=== PATIENT | male | born 1985 | race Caucasian/White ===

== ENCOUNTER 2018-01-28 20:46 | Emergency (ER) | payer OTHER, SELFPAY ==
--- NOTE | 2018-01-28 22:16 | ER ---
Nurse's Notes [facility] Name: Haja Louis Age: 32 yrs Sex: Male : 1985 Arrival Date: 01/28/2018 Time: 20:51 Bed 19 Private MD: Diagnosis: Strain of muscle and tendon of back wall of thorax;Strain of muscle, fascia and tendon of lower back Presentation: 01/28 20:59 Presenting complaint: Patient states: Lower and mid back pain for the past 2 days. aj1 Patient states that he was doing heavy work the day before it started hurting, and he woke up the next morning with back pain. Transition of care: patient was not received from another setting of care. Onset of symptoms was January 25, 2018. Risk Assessment: Do you want to hurt yourself or someone else? Patient reports no desire to harm self or others. Initial Sepsis Screen: Does the patient meet any 2 criteria? No. Patient's initial sepsis screen is negative. Does the patient have a suspected source of infection? No. Patient's initial sepsis screen is negative. Care prior to arrival: None. 20:59 Method Of Arrival: Ambulatory aj 20:59 Acuity: JORDON 4 aj1 Triage Assessment: 21:04 General: Appears in no apparent distress. uncomfortable, Behavior is calm, cooperative, aj1 appropriate for age. Pain: Complains of pain in low back area and mid back area Pain currently is 5 out of 10 on a pain scale. Neuro: Level of Consciousness is awake, alert, obeys commands. Cardiovascular: Patient's skin is warm and dry. Respiratory: Airway is patent Respiratory effort is even, unlabored, Respiratory pattern is regular, symmetrical. Musculoskeletal: Range of motion: intact in all extremities. Historical: - Allergies: 21:04 No Known Allergies; aj1 - Home Meds: 21:04 None [Active]; aj1 - PMHx: 21:04 None; aj1 - PSHx: 21:04 None; aj1 - Immunization history:: Flu vaccine is not up to date. - Social history:: Smoking status: Patient uses tobacco products, denies chronic smoking, but will smoke occasionally. - Ebola Screening: : Patient denies travel to an Ebola-affected area in the 21 days before illness onset. Screenin:50 Abuse screen: Denies threats or abuse. Denies injuries from another. Nutritional ak1 screening: No deficits noted. Tuberculosis screening: No symptoms or risk factors identified. Fall Risk None identified. Assessment: 21:50 General: Appears in no apparent distress. Behavior is cooperative, anxious. Pain: ak1 Complains of pain in mid back area and low back area. Neuro: Level of Consciousness is awake, alert, obeys commands, Oriented to person, place, time, situation, Pencil Maker are equal bilaterally Moves all extremities. Gait is steady, Speech is normal, Facial symmetry appears normal. Cardiovascular: No deficits noted. Respiratory: No deficits noted. GI: No signs and/or symptoms were reported involving the gastrointestinal system. : No signs and/or symptoms were reported regarding the genitourinary system. EENT: No signs and/or symptoms were reported regarding the EENT system. Derm: No signs and/or symptoms reported regarding the dermatologic system. Musculoskeletal: Reports pain in mid back area and low back area since yesterday. pt denies injury. pt stated he woke yesterday with "stiff back" and it continued today. pt unable to return to work today. . 22:19 Reassessment: pt refused IM pain medication. pt requested work note. ak1 Vital Signs: 21:04 BP 147 / 80; Pulse 55; Resp 16; Temp 97.5; Pulse Ox 100% on R/A; Weight 99.79 kg (R); aj1 Height 5 ft. 11 in. (180.34 cm) (R); Pain 5/10; 21:04 Body Mass Index 30.68 (99.79 kg, 180.34 cm) aj1 ED Course: 20:51 Patient arrived in ED. ag3 21:04 Triage completed. aj1 21:04 Arm band placed on Patient placed in waiting room, Patient notified of wait time. aj1 21:28 Danna Molina, ERICK is Primary Nurse. ak1 21:45 Smith Melgar NP is PHCP. pm1 21:45 Ruben Miles MD is Attending Physician. pm1 21:52 Patient has correct armband on for positive identification. Bed in low position. Call ak1 light in reach. Side rails up X 1. 22:14 No provider procedures requiring assistance completed. Patient did not have IV access ak1 during this emergency room visit. Administered Medications: 22:13 Drug: Motrin 800 mg Route: PO; ak1 22:19 Follow up: Response: No adverse reaction ak1 Outcome: 22:14 Condition: good ak1 22:14 Discharge instructions given to patient. 22:16 Discharge ordered by MD. pm1 22:19 Discharged to home ambulatory. ak1 22:19 Instructed on discharge instructions, follow up and referral plans. no drinking with medication, no driving heavy equipment, medication usage, Demonstrated understanding of instructions, follow-up care, medications, Prescriptions given X 2. 22:20 Patient left the ED. ak1 Signatures: Tami Staples RN RN aj1 Danna Molina RN RN ak1 Smith Melgar, HOMOEOPATH HOMOEOPATH pm1 Kay Parks
--- NOTE | 2018-01-28 22:16 | EDPHYS ---
Physician Documentation [facility] Name: Haja Louis Age: 32 yrs Sex: Male : 1985 Arrival Date: 01/28/2018 Time: 20:51 Bed 19 Private MD: ED Physician Ruben Miles HPI: 01/28 22:13 This 32 yrs old Male presents to ER via Ambulatory with complaints of Back pm1 Pain. 22:13 The patient presents with pain that is acute. The symptoms are located in the thoracic pm1 area and lumbar area. Onset: The symptoms/episode began/occurred this morning. The pain does not radiate. Associated signs and symptoms: Pertinent negatives: abdominal pain, chest pain, dysuria, fever, numbness, tingling, weakness. The problem was sustained when bending over, when lifting heavy object. Modifying factors: The patient symptoms are alleviated by remaining still, the patient symptoms are aggravated by bending, lifting, movement. Severity of symptoms: in the emergency department the symptoms are actually worse. Patient lifting multiple 50 pound objects yesterday and woke up this AM with pain and muscle cramping to his thoracic and lumbar areas. . Historical: - Allergies: 21:04 No Known Allergies; aj1 - Home Meds: 21:04 None [Active]; aj1 - PMHx: 21:04 None; aj1 - PSHx: 21:04 None; aj1 - Immunization history:: Flu vaccine is not up to date. - Social history:: Smoking status: Patient uses tobacco products, denies chronic smoking, but will smoke occasionally. - Ebola Screening: : Patient denies travel to an Ebola-affected area in the 21 days before illness onset. ROS: 22:13 Constitutional: Negative for fever, chills, and weight loss, Eyes: Negative for injury, pm1 pain, redness, and discharge, ENT: Negative for injury, pain, and discharge, Neck: Negative for injury, pain, and swelling, Cardiovascular: Negative for chest pain, palpitations, and edema, Respiratory: Negative for shortness of breath, cough, wheezing, and pleuritic chest pain, Abdomen/GI: Negative for abdominal pain, nausea, vomiting, diarrhea, and constipation. 22:13 : Negative for injury, bleeding, discharge, and swelling, MS/Extremity: Negative for injury and deformity, Skin: Negative for injury, rash, and discoloration, Neuro: Negative for headache, weakness, numbness, tingling, and seizure. 22:13 Back: Positive for of the thoracic area and lumbar area, pain. Exam: 22:13 Constitutional: This is a well developed, well nourished patient who is awake, alert, pm1 and in no acute distress. Head/Face: Normocephalic, atraumatic. Eyes: Pupils equal round and reactive to light, extra-ocular motions intact. Lids and lashes normal. Conjunctiva and sclera are non-icteric and not injected. Cornea within normal limits. Periorbital areas with no swelling, redness, or edema. ENT: Nares patent. No nasal discharge, no septal abnormalities noted. Tympanic membranes are normal and external auditory canals are clear. Oropharynx with no redness, swelling, or masses, exudates, or evidence of obstruction, uvula midline. Mucous membranes moist. Neck: Trachea midline, no thyromegaly or masses palpated, and no cervical lymphadenopathy. Supple, full range of motion without nuchal rigidity, or vertebral point tenderness. No Meningismus. Chest/axilla: Normal chest wall appearance and motion. Nontender with no deformity. No lesions are appreciated. Cardiovascular: Regular rate and rhythm with a normal S1 and S2. No gallops, murmurs, or rubs. Normal PMI, no JVD. No pulse deficits. Respiratory: Lungs have equal breath sounds bilaterally, clear to auscultation and percussion. No rales, rhonchi or wheezes noted. No increased work of breathing, no retractions or nasal flaring. 22:13 Skin: Warm, dry with normal turgor. Normal color with no rashes, no lesions, and no evidence of cellulitis. MS/ Extremity: Pulses equal, no cyanosis. Neurovascular intact. Full, normal range of motion. 22:13 Back: scoliosis that is mild, muscle spasm, is appreciated in the left subscapular area, right subscapular area, left low back and right low back. 22:13 Neuro: Orientation: is normal, Mentation: is normal, Motor: moves all fours, strength is normal, Gait: is steady, at a normal pace, without difficulty. Vital Signs: 21:04 BP 147 / 80; Pulse 55; Resp 16; Temp 97.5; Pulse Ox 100% on R/A; Weight 99.79 kg (R); aj1 Height 5 ft. 11 in. (180.34 cm) (R); Pain 5/10; 21:04 Body Mass Index 30.68 (99.79 kg, 180.34 cm) aj1 MDM: 22:00 Patient medically screened. pm1 22:14 Data reviewed: vital signs. Data interpreted: Pulse oximetry: on room air is 100 %. pm1 Interpretation: normal. Counseling: I had a detailed discussion with the patient and/or guardian regarding: the historical points, exam findings, and any diagnostic results supporting the discharge/admit diagnosis, the need for outpatient follow up, to return to the emergency department if symptoms worsen or persist or if there are any questions or concerns that arise at home. ED course: patient offered Toradol but requested PO medication. Patient driving so patient given ibuprofen in ER. Administered Medications: 22:13 Drug: Motrin 800 mg Route: PO; ak1 22:19 Follow up: Response: No adverse reaction ak Disposition: 23:12 Co-signature as Attending Physician, Ruben Miles MD. dwaine Disposition: 01/28/18 22:16 Discharged to Home. Impression: Strain of muscle and tendon of back wall of thorax, Strain of muscle, fascia and tendon of lower back. - Condition is Stable. - Discharge Instructions: Back Pain, Adult, Muscle Strain, Back Injury Prevention, [id number]. - Prescriptions for Naprosyn 500 mg Oral Tablet - take 1 tablet by ORAL route 2 times per day take with food; 30 tablet. Cyclobenzaprine 10 mg Oral Tablet - take 1 tablet by ORAL route every 8 hours As needed; 30 tablet. - Work release form, Medication Reconciliation Form, Thank You Letter, Antibiotic Education, Prescription Opioid Use form. - Follow up: Emergency Department; When: As needed; Reason: Worsening of condition. Follow up: Private Physician; When: 2 - 3 days; Reason: Recheck today's complaints, Continuance of care, Re-evaluation by your physician. - Problem is new. - Symptoms have improved. Signatures: Tami Staples RN RN aj1 Ruben Miles MD MD pkl Danna Molina RN RN ak1 Smith Melgar, FAMILY WELFARE SOCIAL WORK PROFESSOR FAMILY WELFARE SOCIAL WORK PROFESSOR pm1 Corrections: (The following items were deleted from the chart) 22:20 22:16 01/28/2018 22:16 Discharged to Home. Impression: Strain of muscle and tendon of ak1 back wall of thorax; Strain of muscle, fascia and tendon of lower back. Condition is Stable. Forms are Work release form, Medication Reconciliation Form, Thank You Letter, Antibiotic Education, Prescription Opioid Use. Follow up: Emergency Department; When: As needed; Reason: Worsening of condition. Follow up: Private Physician; When: 2 - 3 days; Reason: Recheck today's complaints, Continuance of care, Re-evaluation by your physician. Problem is new. Symptoms have improved. pm1
[2018-01-28] MEDS ORDERED: IBUPROFEN 400 MG TAB ONE (22:18)
== END 2018-01-28 22:20 | disposition home or self-care (01) ==
LOC: ER 20:46
DX: S29.012A Strain of muscle and tendon of back wall of thorax, initial encounter (principal); S39.012A Strain of muscle, fascia and tendon of lower back, initial encounter; X50.0XXA Overexertion from strenuous movement or load, initial encounter; Y93.89 Activity, other specified; Y92.9 Unspecified place or not applicable; Z72.0 Tobacco use
CPT/HCPCS: 99283

== ENCOUNTER 2018-12-16 23:44 | Emergency (ER) | payer SELFPAY ==
--- NOTE | 2018-12-17 00:57 | ER ---
Nurse's Notes [facility] Name: Haja Louis Age: 33 yrs Sex: Male : 1985 Arrival Date: 12/16/2018 Time: 23:47 Bed 8 Private MD: Diagnosis: Impetigo Presentation: 12/16 23:54 Presenting complaint: Patient states: wound under nose since Sunday. pt stated he ak1 noticed a "bump" after shaving on Sunday. Transition of care: patient was not received from another setting of care. Onset of symptoms is unknown. Risk Assessment: Do you want to hurt yourself or someone else? Patient reports no desire to harm self or others. Initial Sepsis Screen: Does the patient meet any 2 criteria? No. Patient's initial sepsis screen is negative. Does the patient have a suspected source of infection? No. Patient's initial sepsis screen is negative. Care prior to arrival: None. 23:54 Method Of Arrival: Ambulatory ak1 23:54 Acuity: JORDON 4 ak1 Triage Assessment: 23:55 General: Appears in no apparent distress. Behavior is agitated, anxious, restless. ak1 Historical: - Allergies: 23:55 No Known Allergies; ak1 - Home Meds: 23:55 None [Active]; ak1 - PMHx: 23:55 None; ak1 - PSHx: 23:55 None; ak1 - Immunization history:: Adult Immunizations unknown. - Social history:: Smoking status: Patient uses tobacco products, smokes one-half pack cigarettes per day. - Ebola Screening: : No symptoms or risks identified at this time. Screenin:56 Abuse screen: Denies threats or abuse. Denies injuries from another. Nutritional ak1 screening: No deficits noted. Tuberculosis screening: No symptoms or risk factors identified. Fall Risk None identified. Assessment: 12/17 01:00 General: Appears in no apparent distress. Behavior is calm, cooperative, appropriate ea for age. Pain: Denies pain. Neuro: Level of Consciousness is awake, alert, obeys commands, Oriented to person, place, time, situation. Cardiovascular: Patient's skin is warm and dry. Respiratory: Airway is patent Respiratory effort is even, unlabored, Respiratory pattern is regular, symmetrical. Derm: Skin is pink, warm \\T\\ dry. 01:11 Reassessment: Patient and/or family updated on plan of care and expected duration. Pain ea level reassessed. Patient is alert, oriented x 3, equal unlabored respirations, skin warm/dry/pink. Discharge instruction given to patient, verbalized the understanding of instruction. Pt left ED ambulatory without assistance, pt tolerated well. Vital Signs: 12/16 23:55 BP 150 / 130; Pulse 100; Resp 18; Temp 97.9; Pulse Ox 100% on R/A; Weight 90.72 kg (R); ak1 Height 5 ft. 11 in. (180.34 cm) (R); Pain 5/10; 12/17 00:41 BP 122 / 78; Pulse 89; Resp 18; Pulse Ox 98% on R/A; mt 01:00 BP 116 / 87; Pulse 90; Resp 18; Pulse Ox 97% on R/A; ea 12/16 23:55 Body Mass Index 27.89 (90.72 kg, 180.34 cm) ak1 ED Course: 12/16 23:47 Patient arrived in ED. ag3 23:55 Triage completed. ak1 23:55 Arm band placed on Patient placed in an exam room, on a stretcher, on pulse oximetry, ak1 Patient notified of wait time. 23:56 Patient has correct armband on for positive identification. Bed in low position. Call ak1 light in reach. Side rails up X 1. 12/17 00:03 Leon Vizcarra PA is PHCP. cp 00:03 Leon Brown MD is Attending Physician. cp 01:14 No provider procedures requiring assistance completed. Patient did not have IV access ea during this emergency room visit. Administered Medications: 01:04 Drug: Bactroban Ointment 2 % 1 application Route: Topical; Site: affected area; ea 01:10 Follow up: Response: Medication administered at discharge. ea Outcome: 00:50 Discharge ordered by . cp 01:12 Discharged to home ambulatory. ea 01:12 Condition: stable 01:12 Discharge instructions given to patient, Instructed on discharge instructions, follow up and referral plans. medication usage, Demonstrated understanding of instructions, follow-up care, medications, Prescriptions given X 2. 01:14 Patient left the ED. ea Signatures: Danna Molina, RN RN ak1 Leon Vizcarra PA PA cp Thompson, Moriah mt Antunez, Maricruz, RN RN Kay Lan ag3
--- NOTE | 2018-12-17 00:58 | EDPHYS ---
Physician Documentation [facility] Name: Haja Louis Age: 33 yrs Sex: Male : 1985 Arrival Date: 12/16/2018 Time: 23:47 Bed 8 Private MD: ED Physician Leon Brown HPI: 12/17 00:10 This 33 yrs old Male presents to ER via Ambulatory with complaints of BUMP ON cp NOSE. 00:10 The patient's rash thought to be caused by an unknown cause. The rash is located on the cp face. The rash can be described as erythematous. 00:10 Onset: The symptoms/episode began/occurred last week. Associated signs and symptoms: cp Pertinent positives: Pain Pertinent negatives: fever, swelling of lips, swelling of throat, swelling of tongue. Severity of symptoms: in the emergency department the symptoms are worse. Patient reports rash started after shaving last week under nose and above upper lip. Historical: - Allergies: 12/16 23:55 No Known Allergies; ak1 - Home Meds: 23:55 None [Active]; ak1 - PMHx: 23:55 None; ak1 - PSHx: 23:55 None; ak1 - Immunization history:: Adult Immunizations unknown. - Social history:: Smoking status: Patient uses tobacco products, smokes one-half pack cigarettes per day. - Ebola Screening: : No symptoms or risks identified at this time. ROS: 12/17 00:15 Eyes: Negative for injury, pain, redness, and discharge. cp Constitutional: Negative for fever, poor PO intake. 00:15 ENT: Negative for drainage from ear(s), ear pain, sore throat, difficulty swallowing, cp difficulty handling secretions. 00:15 Cardiovascular: Negative for chest pain. 00:15 Respiratory: Negative for cough, shortness of breath, wheezing. 00:15 Abdomen/GI: Negative for abdominal pain. 00:15 Skin: Positive for rash, of the face. 00:15 All other systems are negative. Exam: 00:30 Constitutional: The patient appears in no acute distress, alert, awake, non-toxic, well cp developed, well nourished. 00:30 Head/face: Noted is erythema, rash, of the nasolabial area, swelling, tenderness. 00:30 ENT: External ear(s): are unremarkable, Ear canal(s): are normal, clear, TM's: dullness, bilaterally, Nose: nasal drainage, is not appreciated, Mouth: Lips: moist, Oral mucosa: moist, Posterior pharynx: is normal, airway is patent. 00:30 Skin: rash can be described as erythematous, raised, consistent with impetigo, on the nasolabial area. Vital Signs: 12/16 23:55 BP 150 / 130; Pulse 100; Resp 18; Temp 97.9; Pulse Ox 100% on R/A; Weight 90.72 kg (R); ak1 Height 5 ft. 11 in. (180.34 cm) (R); Pain 09/06; 12/17 00:41 BP 122 / 78; Pulse 89; Resp 18; Pulse Ox 98% on R/A; mt 01:00 BP 116 / 87; Pulse 90; Resp 18; Pulse Ox 97% on R/A; ea 12/16 23:55 Body Mass Index 27.89 (90.72 kg, 180.34 cm) ak1 MDM: 00:03 Patient medically screened. roberth 00:15 Differential diagnosis: impetigo, cellulitis, abscess. cp 00:24 Data reviewed: vital signs, nurses notes, and as a result, I will discharge patient. 12/17 00:25 Order name: Vital Signs: blood pressure recheck; Complete Time: 00:42 cp Administered Medications: 01:04 Drug: Bactroban Ointment 2 % 1 application Route: Topical; Site: affected area; ea 01:10 Follow up: Response: Medication administered at discharge. Disposition: 01:15 Chart complete. cp 07:14 Co-signature as Attending Physician, Leon Brown MD I agree with the assessment and [facility] plan of care. Disposition: 12/17/18 00:50 Discharged to Home. Impression: Impetigo. - Condition is Stable. - Discharge Instructions: Impetigo, Adult. - Prescriptions for Bactroban 2 % Topical Ointment - Apply to affected area 1 application by TOPICAL route every 12 hours; 30 gram. Keflex 500 mg Oral Capsule - take 1 capsule by ORAL route every 6 hours for 10 days; 40 capsule. - Medication Reconciliation Form, Thank You Letter, Antibiotic Education, Prescription Opioid Use, Work release form form. - Follow up: Private Physician; When: 2 - 3 days; Reason: Worsening of condition. - Problem is new. - Symptoms have improved. Signatures: Leon Brown MD MD cha Krenek, Amber RN RN ak1 Leon Vizcarra PA PA cp Antunez, Elena, RN RN ea Corrections: (The following items were deleted from the chart) 01:14 00:50 12/17/2018 00:50 Discharged to Home. Impression: Impetigo. Condition is Stable. ea Forms are Medication Reconciliation Form, Thank You Letter, Antibiotic Education, Prescription Opioid Use. Follow up: Private Physician; When: 2 - 3 days; Reason: Worsening of condition. Problem is new. Symptoms have improved. cp
== END 2018-12-17 01:14 | disposition home or self-care (01) ==
LOC: ER 23:44
DX: L01.00 Impetigo, unspecified (principal); F17.210 Nicotine dependence, cigarettes, uncomplicated
CPT/HCPCS: 99283

== ENCOUNTER 2024-06-12 03:01 | Emergency (ER) | payer OTHER, SELFPAY ==
[2024-06-12] MEDS ORDERED: ACETAMINOPHEN 500 MG TAB ONE (03:56)
[2024-06-12] MEDS ORDERED: dexAMETHasone 10 MG/ML VIAL ONE (03:57)
[2024-06-12] MEDS ORDERED: GUAIFENESIN/DM 5 ML UCUP ONE (03:57)
[2024-06-12] MEDS ORDERED: KETOROLAC 30 MG/ML INJ ONE (03:57)
[2024-06-12 04:37] LABS: SARS-CoV-2 Antigen CONTROL BLUE LINE VIS/BG OK; SARS-CoV-2 Antigen Rapid Res Negative (Negative)
--- NOTE | 2024-06-12 05:03 | EDPHYS ---
Physician Documentation [facility] Name: Haja Louis Age: 38 yrs Sex: Male : 1985 Arrival Date: 06/12/2024 Time: 03:01 Bed 6 Private MD: ED Physician Thee Garcia HPI: 06/12 03:13 This 38 yrs old Male presents to ER via Unassigned with complaints of Cough, sp4 Chest Congestion. 06/13 01:59 38-year-old male presents with complaint of cough and chest congestion. He particularly sp4 complains of scratchy and painful throat. Historical: - Allergies: 06/12 03:18 No Known Allergies; ha1 - Immunization history:: Adult Immunizations not up to date. - Infectious Disease History:: Denies. - Social history:: Smoking status: unknown. - Family history:: not pertinent. ROS: 06/13 01:59 Constitutional: Negative for fever, chills, and weight loss, positive for sore throat, sp4 positive for cough, positive chest congestion All other systems are negative, Exam: 01:59 Constitutional: This is a well developed, well nourished patient who is awake, alert, sp4 and in no acute distress. Head/Face: Normocephalic, atraumatic. Eyes: Pupils equal round and reactive to light, extra-ocular motions intact. Lids and lashes normal. Conjunctiva and sclera are not injected. Cornea within normal limits. Periorbital areas with no swelling, redness, or edema. ENT: Nares patent. No nasal discharge, no septal abnormalities noted. Tympanic membranes are normal and external auditory canals are clear. Oropharynx with diffuse redness tenderness and swelling. Neck: Trachea midline, no thyromegaly or masses palpated, and no cervical lymphadenopathy. Supple, full range of motion without nuchal rigidity, or vertebral point tenderness. Chest/axilla: Normal chest wall appearance and motion. Nontender with no deformity. No lesions are appreciated. Cardiovascular: Regular rate and rhythm with a normal S1 and S2. No gallops, murmurs, or rubs. Normal PMI, no JVD. No pulse deficits. Respiratory: Lungs have equal breath sounds bilaterally, clear to auscultation and percussion. No rales, rhonchi or wheezes noted. No increased work of breathing, no retractions or nasal flaring. Abdomen/GI: Soft, with normal bowel sounds. No distension or tympany. No guarding or rebound. No evidence of tenderness throughout. Back: No spinal tenderness. No costovertebral tenderness. Skin: Warm, dry with normal turgor. Normal color with no rashes, no lesions, and no evidence of cellulitis. MS/ Extremity: Pulses equal, no cyanosis. Neurovascular intact. Full, normal range of motion. Neuro: Awake and alert, GCS 15, oriented to person, place, time, and situation. Cranial nerves II-XII grossly intact. Motor strength 5/5 in all extremities. Sensory grossly intact. Psych: Awake, alert, with orientation to person, place and time. Behavior, mood, and affect are within normal limits Vital Signs: 06/12 03:20 BP 116 / 76; Pulse 94; Resp 18; Temp 98.4; Pulse Ox 98% ; Pain 6/10; cp4 03:20 Pain Scale: Adult cp4 Melissa Coma Score: 06/13 01:59 Eye Response: spontaneous(4). Motor Response: obeys commands(6). Verbal Response: sp4 oriented(5). Total: 15. MDM: 06/12 03:18 Medical Screening Exam initiated sp4 06/13 01:59 Differential Diagnosis: Obstructed Airway Bronchitis Influenza Upper Respiratory sp4 Infection Sinusitis. Data reviewed: vital signs, nurses notes, lab test result(s), Flu: negative. 06/12 03:37 Order name: Influenza Screen (a \T\ B); Complete Time: 04:59 sp4 06/12 03:37 Order name: SARS RAPID; Complete Time: 04:59 sp4 06/12 03:37 Order name: Strep; Complete Time: 04:59 sp4 06/12 04:00 Order name: Glucose, Ancillary Testing; Complete Time: 04:59 EDMS 06/12 04:40 Order name: Throat Culture EDMI 06/12 03:38 Order name: Accucheck Blood Glucose; Complete Time: 03:50 sp4 Administered Medications: 06/12 04:05 Drug: Ketorolac IM 60 mg IM once Route: IM; Site: right ventrogluteal; cp4 06:02 Follow up: Response: No adverse reaction; Pain is decreased cp4 04:05 Drug: Dexamethasone IM 10 mg IM once Route: IM; Site: left ventrogluteal; cp4 06:02 Follow up: Response: No adverse reaction cp4 04:05 Drug: Acetaminophen PO 1000 mg PO once Route: PO; cp4 06:02 Follow up: Response: No adverse reaction; Pain is decreased cp4 04:05 Drug: Dextromethorphan-Guaifenesin PO Liquid 10 mg-100 mg/5 mL 20 ml PO once Route: PO; cp4 06:02 Follow up: Response: No adverse reaction cp4 Disposition Summary: 06/12/24 05:02 Discharge Ordered Notes: Location: Home sp4 Problem: new sp4 Symptoms: have improved sp4 Condition: Stable sp4 Diagnosis - Acute laryngitis sp4 - Acute bronchitis, unspecified sp4 Followup: sp4 - With: Allen Haramn DO - When: 7 - 10 days - Reason: Recheck today's complaints Discharge Instructions: - Discharge Summary Sheet sp4 - Acute Bronchitis, Adult sp4 Forms: - Patient Portal Instructions sp4 Prescriptions: - dextromethorphan-guaifenesin 20-400 mg Oral tablet - take 2 tablet ORAL route every 6 hours PRN cough; 60 tablet; Refills: 0, sp4 Product Selection Permitted - Ibuprofen 800 mg Oral Tablet - take 1 tablet ORAL route every 8 hours As needed take with food; 30 tablet; sp4 Refills: 0, Product Selection Permitted - promethazine 25 mg Oral tablet - take 1 tablet ORAL route every 6 hours As needed PRN nausea; 30 tablet; sp4 Refills: 0, Product Selection Permitted Signatures: Dispatcher [employer] Qian Edwards RN RN ha1 Thee Garcia MD MD sp4 Thao Patrick 4
--- NOTE | 2024-06-12 06:02 | ER ---
Nurse's Notes [facility] Name: Haja Louis Age: 38 yrs Sex: Male : 1985 Arrival Date: 06/12/2024 Time: 03:01 Bed 6 Private MD: Diagnosis: Acute laryngitis;Acute bronchitis, unspecified Presentation: 06/12 03:18 Chief complaint: Patient states: SORE THROAT, NASAL CONGESTION, AND COUGH. ha1 03:18 Coronavirus screen: Client denies travel out of the [place] in the last 14 days. Ebola ha1 Screen: No symptoms or risks identified at this time. Initial Sepsis Screen: Does the patient meet any 2 criteria? No. Patient's initial sepsis screen is negative. Does the patient have a suspected source of infection? No. Patient's initial sepsis screen is negative. Risk Assessment: Do you want to hurt yourself or someone else? Patient reports no desire to harm self or others. Onset of symptoms was June 12, 2024. 03:18 Method Of Arrival: Ambulatory ha1 03:18 Acuity: JORDON 4 ha1 Triage Assessment: 03:18 General: Appears uncomfortable, Behavior is cooperative. Pain: Complains of pain in ha1 BODY ACHES. Neuro: Level of Consciousness is awake, alert, obeys commands, Oriented to person, place, time, situation. Cardiovascular: Patient's skin is warm and dry. Respiratory: Airway is patent Respiratory effort is even, unlabored, Respiratory pattern is regular, symmetrical. Respiratory: Reports cough that is non-productive, NASAL CONGESTION. GI: Abdomen is round non-distended. : No signs and/or symptoms were reported regarding the genitourinary system. Derm: Skin is pink, warm \T\ dry. Historical: - Allergies: 03:18 No Known Allergies; ha1 - Immunization history:: Adult Immunizations not up to date. - Infectious Disease History:: Denies. - Social history:: Smoking status: unknown. - Family history:: not pertinent. Screenin:18 [facility] ED Fall Risk Assessment (Adult) History of falling in the last 3 months, ha1 including since admission No falls in past 3 months (0 pts) Confusion or Disorientation No (0 pts) Intoxicated or Sedated No (0 pts) Impaired Gait No (0 pts) Mobility Assist Device Used No (0 pt) Altered Elimination No (0 pt) Score/Fall Risk Level 0 - 2 = Low Risk Oriented to surroundings, Maintained a safe environment, Educated pt \T\ family on fall prevention, incl call for assistance when getting out of bed, Hourly rounding (assess needs \T\ fall precautionary measures) done. Abuse screen: Denies threats or abuse. Denies injuries from another. Nutritional screening: No deficits noted. Tuberculosis screening: No symptoms or risk factors identified. 03:20 [facility] ED Fall Risk Assessment (Adult) History of falling in the last 3 months, cp4 including since admission No falls in past 3 months (0 pts) Confusion or Disorientation No (0 pts) Intoxicated or Sedated No (0 pts) Impaired Gait No (0 pts) Mobility Assist Device Used No (0 pt) Altered Elimination No (0 pt) Score/Fall Risk Level 0 - 2 = Low Risk Oriented to surroundings, Maintained a safe environment, Assessed \T\ reinforced patient's understanding of fall precautions, Hourly rounding (assess needs \T\ fall precautionary measures) done. Abuse screen: Denies threats or abuse. Denies injuries from another. Nutritional screening: No deficits noted. Tuberculosis screening: No symptoms or risk factors identified. Assessment: 03:20 General: Appears in no apparent distress. uncomfortable, Behavior is calm, cooperative, cp4 appropriate for age. 03:20 Pain: Complains of pain in chest Pain currently is 6 out of 10 on a pain scale. Pain cp4 began gradually. Neuro: Level of Consciousness is awake, alert, obeys commands, Oriented to person, place, time, situation. Cardiovascular: Patient's skin is warm and dry. Respiratory: Reports cough that is pain with cough Airway is patent Respiratory effort is even, unlabored, Breath sounds are clear bilaterally. GI: No signs and/or symptoms were reported involving the gastrointestinal system. : No signs and/or symptoms were reported regarding the genitourinary system. EENT: No signs and/or symptoms were reported regarding the EENT system. Derm: No signs and/or symptoms reported regarding the dermatologic system. Musculoskeletal: No signs and/or symptoms reported regarding the musculoskeletal system. Vital Signs: 03:20 BP 116 / 76; Pulse 94; Resp 18; Temp 98.4; Pulse Ox 98% ; Pain 6/10; cp4 03:20 Pain Scale: Adult cp4 Melissa Coma Score: 06/13 01:59 Eye Response: spontaneous(4). Motor Response: obeys commands(6). Verbal Response: sp4 oriented(5). Total: 15. ED Course: 06/12 03:03 Patient arrived in ED. [id number] 03:13 Thee Garcia MD is Attending Physician. sp4 03:20 Bed in low position. Call light in reach. Side rails up X 1. Provided Education on: cp4 bronchitis. 03:20 No provider procedures requiring assistance completed. Patient did not have IV access cp4 during this emergency room visit. 03:50 Thao Patrick is Primary Nurse. cp4 05:01 Allen Harman DO is Referral Physician. sp4 05:57 Triage completed. ha1 06:01 Arm band placed on right wrist. Patient placed in waiting room. cp4 Administered Medications: 04:05 Drug: Ketorolac IM 60 mg IM once Route: IM; Site: right ventrogluteal; cp4 06:02 Follow up: Response: No adverse reaction; Pain is decreased cp4 04:05 Drug: Dexamethasone IM 10 mg IM once Route: IM; Site: left ventrogluteal; cp4 06:02 Follow up: Response: No adverse reaction cp4 04:05 Drug: Acetaminophen PO 1000 mg PO once Route: PO; cp4 06:02 Follow up: Response: No adverse reaction; Pain is decreased cp4 04:05 Drug: Dextromethorphan-Guaifenesin PO Liquid 10 mg-100 mg/5 mL 20 ml PO once Route: PO; cp4 06:02 Follow up: Response: No adverse reaction cp4 Medication: 03:20 VIS not applicable for this client. cp4 Outcome: 05:02 Discharge ordered by . sp4 06:00 Discharged to home ambulatory, cp4 06:00 Condition: stable 06:00 Discharge instructions given to patient, Instructed on discharge instructions, follow up and referral plans. medication usage, Demonstrated understanding of instructions, follow-up care, medications, Prescriptions given X 3, 06:01 Patient left the ED. cp4 Signatures: Malu Gee [id number] Qian Duran RN RN 1 Thee Garcia MD MD sp4 Thao Patrick cp4
[2024-06-12 06:06] VITALS: BP 116/76; TEMP 98.4; O2SAT 98
== END 2024-06-12 06:01 | disposition home or self-care (01) ==
LOC: ER 03:01
DX: J20.9 Acute bronchitis, unspecified (principal); J04.0 Acute laryngitis; Z11.52 Encounter for screening for COVID-19
CPT/HCPCS: 87070; 36415; 82947; 87081; 87804 ×2; 96372; 99284; 87811; J1100